=== PATIENT | female | born 1945 | race Caucasian/White ===

== ENCOUNTER 2023-09-20 12:10 | Emergency (ER) | payer MEDICARE, SELFPAY ==
[2023-09-20] VITALS (8 sets, daily range): BP systolic 119–177; BP diastolic 51–75
[2023-09-20 12:36] LABS: % Basophils 0.7 % (0-2); % Eosinophils 2.5 % (0-6); % Immature Granulocytes 1.3 % (0-0.5); % Lymphocytes 17.8 % (20.5-51.1); % Monocytes 9.6 % (1.7-9.3); % Neutrophils 68.1 % (42.2-75.2); Absolute Basophils 0.1 10^3/uL (0-0.2); Absolute Eosinophils 0.2 10^3/uL (0-0.7); Absolute Immature Granulocytes 0.1 10^3/uL (0-0.05); Absolute Lymphocytes 1.2 10^3/uL (1.2-3.4); Absolute Monocytes 0.7 10^3/uL (0.1-0.6); Absolute Neutrophils 4.7 10^3/uL (1.4-6.5); Hematocrit 37.1 % (37.0-47.0); Hemoglobin 12.1 g/dL (12.0-16.0); Mean Corp Hgb Conc. 32.6 g/dL (33.0-37.0); Mean Corpuscular Hgb 31.4 pg (27.0-31.0); Mean Corpuscular Volume 96.4 fL (81.0-99.0); Mean Platelet Volume 12.5 fL (7.4-10.4); Nucleated Red Blood Cells % 0 %; Platelet Count 152 10^3/uL (130-400); Red Blood Cell Count 3.85 10^6/uL (4.20-5.40); White Blood Cell Count 6.8 10^3/uL (4.8-10.8)
[2023-09-20 12:51] LABS: AST (SGOT) 24 U/L (14-36); Albumin 4.3 g/dl (3.5-5.0); Blood Urea Nitrogen 19 mg/dl (7-17); Calcium 10.5 mg/dl (8.4-10.2); Carbon Dioxide 32 mmol/L (22-30); Glucose 77 mg/dl (70-99); Potassium 4.6 mmol/L (3.5-5.1); Total Bilirubin 0.5 mg/dl (0.2-1.3); Total Protein 6.7 g/dl (6.3-8.2); eGFR > 60.00
[2023-09-20 12:53] LABS: ALT (SGPT) 14 U/L (0-35); Alkaline Phosphatase 71 U/L (38-126); Chloride 103 mmol/L (98-107); Sodium 139 mmol/L (135-145)
[2023-09-20 13:00] LABS: Troponin I < 0.012 ng/ml
--- NOTE | 2023-09-20 15:15 | CON.CAR ---
Addendum entered and electronically signed by Parveen Quiles MD 09/20/23 17:05:
I saw and examined the patient.
The [employer] And Breakfast Cook's note was reviewed and I agree with the note.
Comment: Briefly, 77-year-old woman past medical history of paroxysmal atrial fibrillation, hypertension, hyperlipidemia and DM2 who presents for evaluation of chest discomfort
Tells me that chest pain has been waxing and waning for approximately a week now and does not seem to be exertional in nature
Twelve-lead ECG here is does not show any ischemic changes
Troponin undetectable x 2
She had some relief of her chest discomfort with GI cocktail here
Given history of GERD and achalasia I suspect that her symptoms may be GI in nature
We will arrange for outpatient ischemic evaluation with nuclear stress test as well as office follow-up
Stable for discharge from my perspective
Original Note:
Consultation
Consultation Request
Date/Time Consultation Requested: 09/20/2023
Date/Time Consultation Performed: 09/20/2023
Requesting Provider: Dr. Magdaleno
Performing Provider: Dr. Quiles
Reason for Consultation: Chest Pain
Medical History
-
History of Present Illness:
HPI: Saundra is a 77-year-old female with past medical history of paroxysmal atrial fibrillation status post watchman, hypertension, hyperlipidemia, diabetes mellitus type 2, polymyalgia rheumatica, hypothyroidism, and orthostasis. She presents to
ER for evaluation of chest pain. She reports she has had intermittent chest pain for the past week. She feels her chest pain intermittently throughout the day, mostly with rest. She states her discomfort feels like a sharp/squeezing sensation
across her anterior chest. She notes associated lightheadedness, nausea, and chills. Her symptoms typically worsen towards the evening. She takes Tums, but has continued to have symptoms every day this week. She is active regularly, walking
without any exertional symptoms. In ER, workup has been unremarkable. Initial troponin negative. EKG sinus rhythm with PACs. No acute ischemic changes noted. She was given a GI cocktail to see if this helped her symptoms. She reports she
currently feels well and has no significant discomfort.
PMH:
Paroxysmal atrial fibrillation
s/p watchman implantation
Hypertension
DM 2
Polymyalgia rheumatica
Hyperlipidemia
Anxiety
Hypothyroidism
Orthostasis
PACs
Past Medical History
Past Medical History: Other (In HPI)
Past Surgical History: Other (Bilateral KLAUS, hysterectomy, cholecystectomy, bilateral carpal tunnel surgery)
Social History
Tobacco: Non-Smoker
Alcohol: None
Drug: None
Personal:
Living: With Family
Employment: Retired
Family History
Family History: CAD
Allergies / Home Medications
Allergy/AdvReac Type Severity Reaction Status Date / Time
iodine Allergy Unknown Verified 09/20/23 12:18
lisinopril Allergy Unknown Verified 09/20/23 12:18
sulfamethoxazole Allergy Unknown Verified 09/20/23 12:18
[From Bactrim]
trimethoprim [From Bactrim] Allergy Unknown Verified 09/20/23 12:18
Review of Systems
-
History Source: Patient
All other systems: Negative unless noted
Physical Exam
Vital Signs
Temp Pulse Resp BP Pulse Ox
98.2 F 55 15 139/64 94
09/20/23 12:16 09/20/23 15:00 09/20/23 15:00 09/20/23 15:00 09/20/23 14:45
Lab Results
09/20/23 12:25
09/20/23 12:25
Troponin I < 0.012 ng/ml 09/20/23 12:25
Physical Exam
General: Well Developed, Well Nourished and No Apparent Distress
HEENT: Normocephalic, Anicteric and Moist Mucous Membranes
Respiratory: Clear and Non Labored Respirations
Cardiac: S1/S2 and Regular Rhythm
Musculoskeletal: No Clubbing, No Cyanosis and Edema
Skin: Warm and Dry
Neuro: AO x 3 and Nonfocal/Grossly Intact
Psych: Calm
Impression / Plan
-
PCP: Dr. Noriega
Cardiology: Dr. Finesse Amos
Impression:
Presented with chest pain
Paroxysmal atrial fibrillation
s/p watchman implantation
Hypertension
DM 2
Polymyalgia rheumatica
Hyperlipidemia
Anxiety
Hypothyroidism
Orthostasis
PACs
Plan:
-Presented with 1 week of intermittent chest pain, typically worsened by the end of the day. Pain is not exertional in nature and typically occurs while at rest.
-She is active, walking regularly without any exertional chest pain.
-Initial troponin negative. Await repeat troponin.
-EKG sinus rhythm with PACs. No acute ischemic changes noted.
-Given GI cocktail in ER to see if this helps her symptoms.
-If second troponin remains negative, will arrange for outpatient stress testing.
-Patient reports history of cardiac catheterization 'many years ago.' Did not need any stenting at the time.
-Continue aspirin 81 mg daily.
-Continue Crestor 10 mg daily.
-Denies any shortness of breath. Does have some edema, but overall appears euvolemic. Continue Lasix 40 mg as needed edema. Chest xray without any acute abnormality.
-Blood pressure stable. Continue on Inderal.
-Will arrange cardiology follow-up appointment after stress testing. If second troponin trending up, would admit for observation and continue to trend troponins.
HPI: Saundra is a 77-year-old female with past medical history of paroxysmal atrial fibrillation status post watchman, hypertension, hyperlipidemia, diabetes mellitus type 2, polymyalgia rheumatica, hypothyroidism, and orthostasis. She presents to
ER for evaluation of chest pain. She reports she has had intermittent chest pain for the past week. She feels her chest pain intermittently throughout the day, mostly with rest. She states her discomfort feels like a sharp/squeezing sensation
across her anterior chest. She notes associated lightheadedness, nausea, and chills. Her symptoms typically worsen towards the evening. She takes Tums, but has continued to have symptoms every day this week. She is active regularly, walking
without any exertional symptoms. In ER, workup has been unremarkable. Initial troponin negative. EKG sinus rhythm with PACs. No acute ischemic changes noted. She was given a GI cocktail to see if this helped her symptoms. She reports she
currently feels well and has no significant discomfort.
Data Reviewed
-
EKG: Tracing Personally Visualized and interpreted
Radiology: Report Reviewed by me
Labs: Labs Reviewed by me
Old Records: Reviewed
[2023-09-20] MEDS: MAALOX 30 ML PO (15:23)
[2023-09-20] MEDS: PROTONIX IV 40 MG IV (15:23)
--- NOTE | 2023-09-20 15:35 | ED.GENMED ---
History of Present Illness
<Rajan Magdaleno DO - Last Filed: 09/20/23 15:51>
General
Chief Complaint: Chest Pain
Source: patient and family
Exam Limitations: none
Time Seen by Provider: 09/20/23 13:40
Nursing documentation reviewed up to this point in time: agreed with
History of Present Illness
History of Present Illness:
77-year-old female history of A-fib o post watchman at [facility], status post cardiac cath few blockages that could not be stented, reflux, presents with chest pain onset a week or so ago somewhat worse with exertion describes a pressure also
sharp in her chest no nausea no fever spoke with her physicians recommend she start her an acids, which she did without any relief recently did transfer care to Dr. Amos's practice, no fevers no hemoptysis does have chronic leg edema
Past History
<Rajan Magdaleno DO - Last Filed: 09/20/23 15:51>
Past History
ED Past Medical History: Arrthythmia, CAD and HTN
ED Past Surgical History: Cardiac (watchman); Negative Appendectomy
Social History
Tobacco: Non-smoker
Alcohol: None
Drug: None
Personal:
Living: with family
Employment: Retired
Review of Systems
<Rajan Magdaleno DO - Last Filed: 09/20/23 15:51>
Review of Systems
All Other Systems: Not applicable
Constitutional: Denies fever or fatigue
Respiratory: Reports trouble breathing
Cardiac: Reports chest pain
: Reports no symptoms
Musculoskeletal: Reports no symptoms
Skin: Reports no symptoms
Neurological: Reports no symptoms
Endocrine: Reports no symptoms
Phy Exam
<Rajan Magdaleno DO - Last Filed: 09/20/23 15:51>
Physical Exam
Physical Exam:
Physical Exam
General: Nontoxic 77 female
Neck: No jaundice
Heart: Regular
Lungs: no acute respiratory distress.
Abdomen: Nontender
Neuro: alert and oriented. no focal neurological deficits
Skin: no rash
Psychiatric: well kept. interactive and cooperative
Extremities: no edema.
Scores
<Yusef Saucedo MD - Last Filed: 09/20/23 20:45>
Heart Score for Chest Pain Patients
STEMI patient?: No
History: Slightly or Non-Suspicious
ECG: Nonspecific Repolarization
Age: >/= 65 years
Risk Factors: >/= 3 Risk Factors or History of CAD
Troponin: </= Normal Limit
Heart Score for Chest Pain Patients: 5
Heart Score Risk: 20.3% MACE over next 6 weeks
Course
<Rajan Magdaleno DO - Last Filed: 09/20/23 15:51>
Orders/Labs/Results
Orders:
Orders
09/20/23 12:14
Electrocardiogram (*1) Urgent
Reason for Study: Chest Pain
Cardiac Monitoring- Treatment ONCE
EKG- Treatment ONCE
IV Insert/Care/Rem.- Treatment PRN
O2 Therapy [RESP] Urgent
Titrate/Wean O2 to maintain O2 sat greater than (%): 90
Special Instructions: Maintain sats >/=90%
Pulse Ox/spot Check [RESP] Urgent
Quantity: 1
Special Instructions: ON ROOM AIR
09/20/23 12:25
Complete Blood Count/With Diff Urgent
Comprehensive Metabolic Panel Urgent
Troponin I Urgent
09/20/23 14:56
Mag Hydrox/Al Hydrox/Simeth [Maalox] 30 ml PO NOW STA
Pantoprazole [Protonix IV] 40 mg IV NOW STA
09/20/23 14:57
CR Chest Portable - 1 View Urgent
Comment:
Reason For Exam: cp
Reason Study Needs to be Portable: Patient Unstable
09/20/23 15:52
Troponin I Urgent
Abnormal Lab Results
09/20/23
12:25
RBC 3.85 L 10^6/uL
(4.20-5.40)
MCH 31.4 H pg
(27.0-31.0)
MCHC 32.6 L g/dL
(33.0-37.0)
MPV 12.5 H fL
(7.4-10.4)
Abs Immat Gran (auto) 0.1 H 10^3/uL
(0-0.05)
Absolute Monos (auto) 0.7 H 10^3/uL
(0.1-0.6)
Immature Gran % 1.3 H %
(0-0.5)
Lymphocytes % 17.8 L %
(20.5-51.1)
Monocytes % 9.6 H %
(1.7-9.3)
Carbon Dioxide 32 H mmol/L
(22-30)
BUN 19 H mg/dl
(7-17)
Calcium 10.5 H mg/dl
(8.4-10.2)
09/20/23 12:25
09/20/23 12:25
Vital Signs
Initial and Last Documented VS:
Initial Vital Signs
Pulse Resp Pulse Ox
57 19 98
09/20/23 12:15 09/20/23 12:15 09/20/23 12:15
Last Documented Vital Signs
Temp Pulse Resp BP Pulse Ox
98.1 F 55 18 119/58 95
09/20/23 17:33 09/20/23 17:33 09/20/23 17:33 09/20/23 17:33 09/20/23 17:33
<Yusef Saucedo MD - Last Filed: 09/20/23 20:45>
Orders/Labs/Results
Orders:
Orders
09/20/23 12:14
Electrocardiogram (*1) Urgent
Reason for Study: Chest Pain
Cardiac Monitoring- Treatment ONCE
EKG- Treatment ONCE
IV Insert/Care/Rem.- Treatment PRN
O2 Therapy [RESP] Urgent
Titrate/Wean O2 to maintain O2 sat greater than (%): 90
Special Instructions: Maintain sats >/=90%
Pulse Ox/spot Check [RESP] Urgent
Quantity: 1
Special Instructions: ON ROOM AIR
09/20/23 12:25
Complete Blood Count/With Diff Urgent
Comprehensive Metabolic Panel Urgent
Troponin I Urgent
09/20/23 14:56
Mag Hydrox/Al Hydrox/Simeth [Maalox] 30 ml PO NOW STA
Pantoprazole [Protonix IV] 40 mg IV NOW STA
09/20/23 14:57
CR Chest Portable - 1 View Urgent
Comment:
Reason For Exam: cp
Reason Study Needs to be Portable: Patient Unstable
09/20/23 15:52
Troponin I Urgent
Abnormal Lab Results
09/20/23
12:25
RBC 3.85 L 10^6/uL
(4.20-5.40)
MCH 31.4 H pg
(27.0-31.0)
MCHC 32.6 L g/dL
(33.0-37.0)
MPV 12.5 H fL
(7.4-10.4)
Abs Immat Gran (auto) 0.1 H 10^3/uL
(0-0.05)
Absolute Monos (auto) 0.7 H 10^3/uL
(0.1-0.6)
Immature Gran % 1.3 H %
(0-0.5)
Lymphocytes % 17.8 L %
(20.5-51.1)
Monocytes % 9.6 H %
(1.7-9.3)
Carbon Dioxide 32 H mmol/L
(22-30)
BUN 19 H mg/dl
(7-17)
Calcium 10.5 H mg/dl
(8.4-10.2)
09/20/23 12:25
09/20/23 12:25
Vital Signs
Initial and Last Documented VS:
Initial Vital Signs
Pulse Resp Pulse Ox
57 19 98
09/20/23 12:15 09/20/23 12:15 09/20/23 12:15
Last Documented Vital Signs
Temp Pulse Resp BP Pulse Ox
98.1 F 55 18 119/58 95
09/20/23 17:33 09/20/23 17:33 09/20/23 17:33 09/20/23 17:33 09/20/23 17:33
<Rajan Magdaleno, DO - Last Filed: 09/20/23 15:51>
MDM/Problems Addressed
Differential Diagnosis Includes:
Reflux noncardiac chest pain ACS stable angina
MDM/Problems Addressed:
Chest pain
Chronic conditions affecting care:
Feared
Chronic conditions affecting care: DM, CAD and Arrhythmia
Acute Exacerbation and/or Progression of Chronic Illness:
GERD
Acute Exacerbation and/or Progression of Chronic Illness: DM, HTN, CAD and Arrhythmia
<Rajan Magdaleno, DO - Last Filed: 09/20/23 15:51>
*Radiology
Radiology exam reviewed: preliminary read by ED provider
*Pulse Oximetry
Patient hypoxic: no
*EKG
Interpreted by ED Provider?: Yes
Interpretation: normal
Comparison EKG: no comparison EKG present
Heart Rate: 70
Rhythm: sinus
Ischemia: no ischemia
*Seo Coordinator Interpretation
Rate: normal
Interpretation: normal
Heart Rate: 70
Rhythm: sinus
*Critical Care Note
Total Time (30-74mins, 75-104mins- exclusive of procedures): Not Applicable
<Rajan Magdaleno DO - Last Filed: 09/20/23 15:51>
Update Note
Update Note:
Symptoms are both typical and atypical, will try some Maalox, repeat her troponin after cardiology evaluation patient states she did have CAD but was not stented
<Yusef Saucedo MD - Last Filed: 09/20/23 20:45>
Update Note
Update Note:
Symptoms are both typical and atypical, will try some Maalox, repeat her troponin after cardiology evaluation patient states she did have CAD but was not stented
Pt evaluated in ED by cardiology - recommends discharge home for oupatient f/u.
ED Attending Note
<Rajan Magdaleno, - Last Filed: 09/20/23 15:51>
-
Portions of this chart may have been created with voice recognition software.� Occasional wrong word or��sound alike� substitutions may have occurred due to the inherent limitations of voice recognition software.
Discharge Plan
Departure
Patient Disposition: Home (Routine Discharge)
Date of Disposition: 09/20/23
Time of Disposition: 16:12
Patient with high blood pressure during this ER visit?: No
Condition: Good
Discharge Problem:
Chest pain
Instructions: Chest Pain DCA Follow Up
Referrals:
Gricelda Noriega MD [Family Provider] -
Tanna Leong PA-C [Specified Professional Personl] - 10/16/23 8:20 am (You have a cardiology follow-up appointment at the [place] office with Dr. Kilpatrick's physician litigation legal assistant, Tanna. Please call with questions)
Interventions
Interventions:
*Risk Screen - Suicide Last Done: 09/20/23 12:15
*General Assessment Last Done: 09/20/23 12:25
*Neglect/Abuse Screening Last Done: 09/20/23 12:25
ED- Fall Risk Assessment Last Done: 09/20/23 12:25
*ED COVID-19 Vaccine History Last Done: 09/20/23 12:25
*Nursing Disposition Last Done: 09/20/23 17:33
ED- Cardiac Assessment Last Done: 09/20/23 12:30
Discharge Date and Time
Discharge Date/Time: 09/20/23 17:34
Print Language: AZERI
[2023-09-20 16:30] LABS: Troponin I < 0.012 ng/ml
== END 2023-09-20 17:34 | disposition home or self-care (01) ==
LOC: EMR 12:10
PROVIDERS: EMERGENCY PHYSICIAN Emergency Medicine; FAMILY PHYSICIAN Internal Medicine Geriatric Medicine
DX: R07.89 Other chest pain (principal); I48.0 Paroxysmal atrial fibrillation; I10 Essential (primary) hypertension; E78.00 Pure hypercholesterolemia, unspecified; E11.9 Type 2 diabetes mellitus without complications; E03.9 Hypothyroidism, unspecified; F41.9 Anxiety disorder, unspecified; M35.3 Polymyalgia rheumatica; Z79.899 Other long term (current) drug therapy; Z82.49 Family history of ischemic heart disease and other diseases of the circulatory system; Z90.49 Acquired absence of other specified parts of digestive tract; Z90.710 Acquired absence of both cervix and uterus
CPT/HCPCS: 99283; 96374; 71045; 80053; 84484; 85025; 93005

== ENCOUNTER → 2023-10-03 07:05 | Outpatient (REF) | payer OTHER, SELFPAY ==
[2023-10-03] MEDS: FLUSH (NSS) 1 FLUSH IV (08:44)
[2023-10-03] MEDS: LEXISCAN 0.4 MG IV (08:44)
== END ==
LOC: RCS 07:05
PROVIDERS: ATTENDING PHYSICIAN Internal Medicine Cardiovascular Disease; FAMILY PHYSICIAN Internal Medicine Geriatric Medicine
DX: R07.9 Chest pain, unspecified (principal); E11.9 Type 2 diabetes mellitus without complications
CPT/HCPCS: 78452; 93017; A9500; J2785

== ENCOUNTER 2023-10-25 07:44 | Emergency (ER) | payer OTHER, SELFPAY ==
[2023-10-25] VITALS (21 sets, daily range): BP systolic 99–149; BP diastolic 40–93; BMI 21.9
--- NOTE | 2023-10-25 08:15 | ED.GENMED ---
History of Present Illness
General
Chief Complaint: Heart Rate Problem
Source: patient and records
Exam Limitations: none
Time Seen by Provider: 10/25/23 08:04
Nursing documentation reviewed up to this point in time: agreed with
History of Present Illness
History of Present Illness:
77-year-old female with a past medical history of hypertension, hyperlipidemia, diabetes, chronic kidney disease, GERD, atrial fibrillation status post Watchman procedure no longer on anticoagulation who presents to the emergency department for
evaluation of lightheadedness and palpitations. Patient reports that she woke up this morning and went to the bathroom and while she was in the bathroom she began to feel lightheaded and racing heart. She says the symptoms persisted despite
sitting down and taking some deep breaths and so she asked to call for staff at [facility] where she lives and EMS was called to bring patient to the emergency room. She continues to report some mild palpitations, says that she does not
have lightheadedness while sitting but acknowledges most of her symptoms this morning were while she was more active. She says she did not and does not have any chest pain, denies shortness of breath. She says she was in her usual state of health
last night when she went to bed around 11 PM�has not had any recent fevers, chills, cough URI symptoms, GI symptoms. She normally sees Dr. Finesse Amos for cardiology; she is not on atrial fibrillation due to GI bleeding but has had Watchman
procedure. She was seen in this ER in September for chest pain, subsequently had nuclear stress test 10/03/2023 that was reassuring and she says that she was told her symptoms were due to likely GERD.
Past History
Past History
ED Past Medical History: Arrthythmia, CAD and HTN
ED Past Surgical History: Cardiac (watchman); Negative Appendectomy
Social History
Tobacco: Non-smoker
Alcohol: None
Drug: None
Personal:
Living: with family
Employment: Retired
Review of Systems
Review of Systems
All Other Systems: ROS reviewed and negative except as documented in HPI and ROS
Constitutional: Denies fever or chills
EENT: Denies sore throat or runny nose
Respiratory: Denies cough or trouble breathing
Cardiac: Reports palpitations; Denies chest pain or diaphoresis
ABD/GI: Denies abdominal pain, nausea, vomiting or diarrhea
: Denies flank pain
Musculoskeletal: Denies edema, neck pain or back pain
Neurological: Reports dizzy; Denies headache
Phy Exam
Physical Exam
Physical Exam:
General: Awake, alert, oriented x3; no acute distress
Head: Normocephalic, atraumatic
Eyes: Conjunctiva normal, pupils equal round and reactive to light bilaterally
Throat: Airway intact, handling secretions
Neck: Trachea midline, supple without meningismus
Lungs: Clear to auscultation bilaterally, no wheezing, rales, rhonchi
Heart: Tachycardia with irregularly irregular rhythm, no murmurs, gallops, or rubs
Abd: Soft, non distended, nontender
Neuro: No gross deficits
Skin: no rash
Extremities: No edema in extremities, equal pulses in all extremities
Scores
Heart Failure Risk
Heart Failure Risk Score: Not Applicable
Heart Score for Chest Pain Patients
STEMI patient?: Not applicable
Withdrawal Assessment of Alcohol
Withdrawal Assessment Completed?: Not applicable
Course
Orders/Labs/Results
Orders:
Orders
10/25/23 07:50
Electrocardiogram (*1) Urgent
Reason for Study: Palpitations
EKG- Treatment ONCE
10/25/23 07:57
BNP [NT-proBNP] Urgent
Complete Blood Count/With Diff Urgent
Comprehensive Metabolic Panel Urgent
Troponin I Urgent
10/25/23 08:52
Propofol [Diprivan] 20 ml .ROUTE .STK-MED
10/25/23 09:24
EKG [Electrocardiogram (*1)] Urgent
Reason for Study: Palpitations
EKG- Treatment ONCE
Abnormal Lab Results
10/25/23
07:57
RBC 3.77 L 10^6/uL
(4.20-5.40)
Hgb 11.6 L g/dL
(12.0-16.0)
Hct 35.9 L %
(37.0-47.0)
MCHC 32.3 L g/dL
(33.0-37.0)
Plt Count 125 L 10^3/uL
(130-400)
MPV 12.9 H fL
(7.4-10.4)
Abs Immat Gran (auto) 0.1 H 10^3/uL
(0-0.05)
Immature Gran % 0.8 H %
(0-0.5)
Lymphocytes % 15.7 L %
(20.5-51.1)
BUN 18 H mg/dl
(7-17)
Glucose 122 H mg/dl
(70-99)
Total Protein 5.9 L g/dl
(6.3-8.2)
10/25/23 07:57
10/25/23 07:57
Vital Signs
Pulse: 122
Initial and Last Documented VS:
Initial Vital Signs
Pulse Resp
91 13
10/25/23 07:53 10/25/23 07:53
Last Documented Vital Signs
Temp Pulse Resp BP Pulse Ox
36.9 C 51 28 111/90 99
10/25/23 10:00 10/25/23 10:20 10/25/23 10:20 10/25/23 10:20 10/25/23 10:15
Procedures
Cardioversion
Indication:: Afib
Performed by:: Basil Villeda MD
Synchronized?: Yes
Energy Used: 200 joules (4 attempts: 200J x1, 300J x1, 360J x2)
Number of attempts: 4
Successful?: Yes
ASA Risk Score: Class II
Any reaction or bad outcome to prior sedation/anesthesia?: No history of a reaction
Sedation level to be attained: moderate
Chart and allergies reviewed: Yes
Patient reassessed prior to sedation: Yes
Time out completed at (validating right patient & procedure): 09:15
History of difficult intubation: No
Airway free of obstruction: Yes
Patient has a gag reflex: Yes
Patient is able to open mouth: Yes
Patient has no dentures: Yes
Patient has no loose teeth: Yes
Medication administered by Provider during Moderate Sedation: IV Propofol (mg)
Total dose administered: 60
Time drug administered: 09:15
Start Time: 09:15
Stop Time: 09:30
MDM/Problems Addressed
Differential Diagnosis Includes:
Symptomatic atrial fibrillation, symptomatic anemia, dehydration, electrolyte derangement
MDM/Problems Addressed:
77-year-old female presents to the emergency room for evaluation of palpitations and lightheadedness�found to be in atrial fibrillation with RVR on EKG done in triage. Labile heart rate between 90s and 130s here, normotensive, rest of vitals
normal. Physical exam as above. She had lab work sent in triage�will follow-up. Case discussed with cardiology�despite lack of anticoagulation given the fact that she has had Watchman procedure still a reasonable candidate for ED cardioversion.
Discussed with patient she is agreeable. Plan for cardioversion pending initial labs.
Initial labs reviewed: CBC unremarkable, CMP no clinically significant abnormalities. Patient cardioverted as documented in procedure note�required 4 times, initial 2 attempts no conversion to sinus rhythm, on third attempt converted to sinus
rhythm but quickly reverted to atrial fibrillation, fourth attempt sustained sinus rhythm with PACs. Patient tolerated procedure well. Continue to monitor on telemetry status post sedation and cardioversion.
Patient awake and alert, asymptomatic since cardioversion. Ambulatory with no dizziness. Monitored for 1 hour after cardioversion and maintained sinus rhythm. Stable for discharge. She will follow-up with cardiology. Spoke about return
precautions all questions answered.
Chronic conditions affecting care:
Paroxysmal atrial fibrillation
Acute Exacerbation and/or Progression of Chronic Illness:
Acute exacerbation of chronic A-fib managed with cardioversion
Acute Exacerbation and/or Progression of Chronic Illness: Arrhythmia
*Pulse Oximetry
Patient hypoxic: no
*EKG
Interpreted by ED Provider?: Yes
Heart Rate: 90
Rate: normal
Rhythm: a-fib
[place]: normal axis
Interval: normal interval
QRS Pattern: normal QRS
Ischemia: non-specific ST changes
*Critical Care Note
Total Time (30-74mins, 75-104mins- exclusive of procedures): 30
comment:
Critical care statement: A total of 30 minutes of critical care time was provided for this patient. This includes management of unstable vital signs, evaluation of the patient at bedside, frequent reassessment, discussion with
consultants/hospitalist, and review of pertinent medical records. This time was separate from time utilized to perform any aforementioned documented procedures
Data Reviewed
Source: patient and records
Patient Management
Discussion with other providers: Security Flex Officer (Discussed with cardiology)
ED Attending Note
-
Portions of this chart may have been created with voice recognition software.� Occasional wrong word or��sound alike� substitutions may have occurred due to the inherent limitations of voice recognition software.
Discharge Plan
Departure
Patient with high blood pressure during this ER visit?: No
Discharge Problem:
Atrial fibrillation status post cardioversion
Instructions: Atrial Fibrillation (DC), MODERATE SEDATION ADULT
Prescriptions:
No Action
furosemide 40 mg Tablet
40 mg PO PRN PRN (Reason: edema)
metformin 500 mg Tablet
500 mg PO TID
acetaminophen 500 mg Tablet
1,000 mg PO BID PRN (Reason: pain)
levothyroxine [Synthroid] 75 mcg Tablet
75 mcg PO DAILY
famotidine [Pepcid] 20 mg Tablet
20 mg PO DAILY
lansoprazole 30 mg Capsule,Delayed Release(Dr/Ec)
30 mg PO BID
aspirin 81 mg Tablet,Chewable
81 mg PO DAILY
propranolol 120 mg Capsule,Extended Release 24hr
120 mg PO DAILY
rosuvastatin [Crestor] 10 mg Tablet
10 mg PO DAILY
Referrals:
Gricelda Noriega MD [Family Provider] - Call in 1-3 days for appt
Jaden Amos MD [Active] - Call in 1-3 days for appt
Activity Restrictions/Additional Instructions:
Thank you for visiting the Emergency Department at [facility].
1. Please schedule a follow up appointment as directed. Call first thing tomorrow morning to make an appointment.
2. If indicated, please take your medications as instructed and indicated on discharge paperwork.
3. If any of your symptoms do not improve, or persist, or become more severe within 6-12 hours, please return to the emergency department for further care.
4. Please return to the emergency department if you develop a headache, neck pain/stiffness, fever greater than 100.4F, chest pain, shortness of breath, persistent nausea, vomiting, slurred speech, difficulty walking, numbness/tingling, weakness,
signs of infection or any other symptoms that are worrisome to you.
Please call [phone] if you have any questions.
Interventions
Interventions:
*Risk Screen - Suicide Last Done: 10/25/23 07:53
*General Assessment Last Done: 10/25/23 07:54
*Neglect/Abuse Screening Last Done: 10/25/23 07:53
ED- Fall Risk Assessment Last Done: 10/25/23 07:51
*ED COVID-19 Vaccine History Last Done: 10/25/23 07:53
ED- Cardiac Assessment Last Done: 10/25/23 07:54
ED- Pulmonary Assessment Last Done: 10/25/23 07:54
Discharge Date and Time
Print Language: LUXEMBOURGER
[2023-10-25 08:18] LABS: % Basophils 0.8 % (0-2); % Eosinophils 2.4 % (0-6); % Immature Granulocytes 0.8 % (0-0.5); % Lymphocytes 15.7 % (20.5-51.1); % Monocytes 6.7 % (1.7-9.3); % Neutrophils 73.6 % (42.2-75.2); Absolute Basophils 0.1 10^3/uL (0-0.2); Absolute Eosinophils 0.2 10^3/uL (0-0.7); Absolute Immature Granulocytes 0.1 10^3/uL (0-0.05); Absolute Lymphocytes 1.2 10^3/uL (1.2-3.4); Absolute Monocytes 0.5 10^3/uL (0.1-0.6); Absolute Neutrophils 5.6 10^3/uL (1.4-6.5); Hematocrit 35.9 % (37.0-47.0); Hemoglobin 11.6 g/dL (12.0-16.0); Mean Corp Hgb Conc. 32.3 g/dL (33.0-37.0); Mean Corpuscular Hgb 30.8 pg (27.0-31.0); Mean Corpuscular Volume 95.2 fL (81.0-99.0); Mean Platelet Volume 12.9 fL (7.4-10.4); Nucleated Red Blood Cells % 0 %; Platelet Count 125 10^3/uL (130-400); Red Blood Cell Count 3.77 10^6/uL (4.20-5.40); Red Cell Dist. Width 13.2 % (11.5-14.5); White Blood Cell Count 7.6 10^3/uL (4.8-10.8)
[2023-10-25 08:24] LABS: ALT (SGPT) < 10 U/L (0-35); AST (SGOT) 19 U/L (14-36); Albumin 3.7 g/dl (3.5-5.0); Alkaline Phosphatase 69 U/L (38-126); Blood Urea Nitrogen 18 mg/dl (7-17); Calcium 9.4 mg/dl (8.4-10.2); Carbon Dioxide 27 mmol/L (22-30); Chloride 107 mmol/L (98-107); Estimated Creatinine Clearance 54 ml/min; Glucose 122 mg/dl (70-99); Potassium 3.9 mmol/L (3.5-5.1); Sodium 143 mmol/L (135-145); Total Bilirubin 0.5 mg/dl (0.2-1.3); Total Protein 5.9 g/dl (6.3-8.2); eGFR > 60.00
[2023-10-25 08:35] LABS: NT-proBNP 2650 pg/ml; Troponin I < 0.012 ng/ml
== END 2023-10-25 10:55 | disposition home or self-care (01) ==
LOC: EMR 07:44
PROVIDERS: Emergency Medicine; EMERGENCY PHYSICIAN Emergency Medicine; FAMILY PHYSICIAN Internal Medicine Geriatric Medicine
DX: I48.91 Unspecified atrial fibrillation (principal); E11.22 Type 2 diabetes mellitus with diabetic chronic kidney disease; I12.9 Hypertensive chronic kidney disease with stage 1 through stage 4 chronic kidney disease, or unspecified chronic kidney disease; N18.9 Chronic kidney disease, unspecified; E78.00 Pure hypercholesterolemia, unspecified; K21.9 Gastro-esophageal reflux disease without esophagitis; I25.10 Atherosclerotic heart disease of native coronary artery without angina pectoris; Z90.49 Acquired absence of other specified parts of digestive tract
CPT/HCPCS: 99291; 92960; 80053; 83880; 84484; 85025; 93005

== ENCOUNTER → 2024-05-21 07:58 | Outpatient (REF) | payer OTHER, SELFPAY | LOC: HWRCS 07:58 | PROVIDERS: ATTENDING PHYSICIAN Internal Medicine Cardiovascular Disease; FAMILY PHYSICIAN Internal Medicine Geriatric Medicine | DX: I48.91 Unspecified atrial fibrillation (principal); R06.09 Other forms of dyspnea | CPT/HCPCS: 93306 ==

== ENCOUNTER 2024-06-08 09:16 | Emergency (ER) | payer OTHER, SELFPAY ==
[2024-06-08] VITALS (10 sets, daily range): BP systolic 93–172; BP diastolic 44–78; BMI 25.9
[2024-06-08 09:42] LABS: % Basophils 0.6 % (0-2); % Eosinophils 1.2 % (0-6); % Immature Granulocytes 0.4 % (0-0.5); % Monocytes 7.7 % (1.7-9.3); % Neutrophils 73.1 % (42.2-75.2); Absolute Basophils 0.1 10^3/uL (0-0.2); Absolute Eosinophils 0.1 10^3/uL (0-0.7); Absolute Lymphocytes 1.4 10^3/uL (1.2-3.4); Absolute Monocytes 0.7 10^3/uL (0.1-0.6); Absolute Neutrophils 6.2 10^3/uL (1.4-6.5); Hematocrit 41.6 % (37.0-47.0); Hemoglobin 13.7 g/dL (12.0-16.0); Mean Corp Hgb Conc. 32.9 g/dL (33.0-37.0); Mean Corpuscular Hgb 32.5 pg (27.0-31.0); Mean Corpuscular Volume 98.8 fL (81.0-99.0); Mean Platelet Volume 12.4 fL (7.4-10.4); Nucleated Red Blood Cells % 0 %; Platelet Count 162 10^3/uL (130-400); Red Blood Cell Count 4.21 10^6/uL (4.20-5.40); Red Cell Dist. Width 13.2 % (11.5-14.5); White Blood Cell Count 8.4 10^3/uL (4.8-10.8)
[2024-06-08 09:51] LABS: ALT (SGPT) 14 U/L (0-35); AST (SGOT) 17 U/L (14-36); Albumin 4.1 g/dl (3.5-5.0); Alkaline Phosphatase 46 U/L (38-126); Blood Urea Nitrogen 19 mg/dl (7-17); Calcium 10.2 mg/dl (8.4-10.2); Carbon Dioxide 29 mmol/L (22-30); Chloride 103 mmol/L (98-107); Glucose 125 mg/dl (70-99); Potassium 4.7 mmol/L (3.5-5.1); Sodium 138 mmol/L (135-145); Total Bilirubin 0.7 mg/dl (0.2-1.3); Total Protein 6.2 g/dl (6.3-8.2); eGFR > 60.00
[2024-06-08 10:03] LABS: Troponin I < 0.012 ng/ml
[2024-06-08 10:58] LABS: Glucose - Point of Care 91 mg/dl (70-99)
[2024-06-08 11:33] LABS: Troponin I < 0.012 ng/ml
--- NOTE | 2024-06-08 12:43 | ED.GENMED ---
History of Present Illness
General
Chief Complaint: Blood Pressure Problem
Source: patient and spouse
Time Seen by Provider: 06/08/24 10:03
History of Present Illness
History of Present Illness:
78-year-old female who was sent by cardiology from the [facility] after she presented to have a stress test and they noted her blood pressure was elevated. The patient's chest tightness around 7:45 AM. Patient states that typically her blood
pressure is controlled. She is having a stress test in preparation for another procedure. On my evaluation reports no other complaints.
Past History
Past History
ED Past Medical History: Arrthythmia, CAD and HTN
ED Past Surgical History: Cardiac (watchman); Negative Appendectomy
Social History
Tobacco: Non-smoker
Alcohol: None
Drug: None
Personal:
Living: with family
Employment: Retired
Phy Exam
Physical Exam
Physical Exam:
CONSTITUTIONAL Patient alert and oriented to person, place and time. Well-appearing. Vital signs reviewed.
HEAD atraumatic, normocephalic.
EYES eyelids normal to inspection, Extraocular muscles intact, Conjunctiva normal, Sclera normal.
NECK normal range of motion, Trachea midline, no jugular venous distention.
RESPIRATORY CHEST No respiratory distress noted, Chest expansion equal, Bilateral breath sounds clear.
CARDIOVASCULAR regular rate and rhythm, Heart sounds normal.
ABDOMEN abdomen nontender, Bowel sounds normal. No distention.
BACK normal inspection, no obvious deformities
UPPER EXTREMITY range of motion normal, Motor strength normal, no cyanosis, no edema.
LOWER EXTREMITY range of motion normal, Motor strength normal, no cyanosis, no edema.
NEURO Speech normal, No focal motor deficits, [place] coma scale 15, Memory normal, Cranial Nerves intact to screening exam.
SKIN skin warm, dry, and normal in color.
Course
Orders/Labs/Results
Orders:
Orders
06/08/24 09:17
Electrocardiogram (*1) Urgent
Reason for Study: Chest Pain
EKG- Treatment ONCE
06/08/24 09:29
Complete Blood Count/With Diff Urgent
Comprehensive Metabolic Panel Urgent
Troponin I Urgent
06/08/24 11:04
Troponin I Urgent
Abnormal Lab Results
06/08/24
09:29
MCH 32.5 H pg
(27.0-31.0)
MCHC 32.9 L g/dL
(33.0-37.0)
MPV 12.4 H fL
(7.4-10.4)
Absolute Monos (auto) 0.7 H 10^3/uL
(0.1-0.6)
Lymphocytes % 17.0 L %
(20.5-51.1)
BUN 19 H mg/dl
(7-17)
Glucose 125 H mg/dl
(70-99)
Total Protein 6.2 L g/dl
(6.3-8.2)
06/08/24 09:29
06/08/24 09:29
Vital Signs
Initial and Last Documented VS:
Initial Vital Signs
Temp Pulse Resp BP Pulse Ox
97.5 F 55 18 167/71 99
06/08/24 09:23 06/08/24 09:23 06/08/24 09:23 06/08/24 09:23 06/08/24 09:23
Last Documented Vital Signs
Temp Pulse Resp BP Pulse Ox
97.5 F 55 20 93/44 99
06/08/24 09:23 06/08/24 12:00 06/08/24 11:52 06/08/24 12:00 06/08/24 12:00
MDM/Problems Addressed
Differential Diagnosis Includes:
ACS, dissection, pheochromocytoma, renal artery stenosis
MDM/Problems Addressed:
Atypical chest pain, uncontrolled hypertension
*Pulse Oximetry
Patient hypoxic: no
*EKG
Interpreted by ED Provider?: Yes
Interpretation: abnormal
Rate: bradycardiac
Rhythm: sinus
[place]: normal axis
Interval: normal interval
Ischemia: no ischemia
*Critical Care Note
Total Time (30-74mins, 75-104mins- exclusive of procedures): Not Applicable
Data Reviewed
Source: patient and spouse (Spouse states that they send her for the possibility of considering also whether she should have a stress test done here.)
Prescriptions/Medications Considered But Not Given:
Consider antihypertensives but patient states her blood pressure is normally quite controlled
Patient Management
Discussion with other providers: Vp Organizational Development (Case discussed with Dr. Cosme. If negative troponin x 2 okay for discharge and outpatient follow-up)
Escalation/DeEscalation of care consider admission/obs:
Blood pressure improving without intervention. Will hold off on management for now and refer back to cardiology for follow-up as outpatient
ED Attending Note
-
Portions of this chart may have been created with voice recognition software.� Occasional wrong word or��sound alike� substitutions may have occurred due to the inherent limitations of voice recognition software.
Discharge Plan
Departure
Patient Disposition: Home (Routine Discharge)
Date of Disposition: 06/08/24
Time of Disposition: 12:43
Patient with high blood pressure during this ER visit?: No
Discharge Problem:
Atypical chest pain, Uncontrolled hypertension
Instructions: High Blood Pressure (DC), Chest Pain DCA Follow Up, BLOOD PRESSURE
Prescriptions:
No Action
furosemide 40 mg Tablet
40 mg PO PRN PRN (Reason: edema)
metformin 500 mg Tablet
500 mg PO TID
acetaminophen 500 mg Tablet
1,000 mg PO BID PRN (Reason: pain)
levothyroxine [Synthroid] 75 mcg Tablet
75 mcg PO DAILY
famotidine [Pepcid] 20 mg Tablet
20 mg PO DAILY
lansoprazole 30 mg Capsule,Delayed Release(/Ec)
30 mg PO BID
aspirin 81 mg Tablet,Chewable
81 mg PO DAILY
propranolol 120 mg Capsule,Extended Release 24hr
120 mg PO DAILY
rosuvastatin [Crestor] 10 mg Tablet
10 mg PO DAILY
Referrals:
Gricelda Noriega MD [Family Provider] -
Activity Restrictions/Additional Instructions:
Please avoid strenuous or exertional activity until cleared by cardiology. Please see cardiology in the next 48 hours for reevaluation. Return immediately for worsening pain, shortness breath, palpitations, sweating, nausea, weakness of any kind,
numbness, tingling or any other concerns.
Cardiology has been notified and a follow up appointment has been requested. Someone will call you on the next business day to schedule a follow up appointment.
Interventions
Interventions:
*Risk Screen - Suicide Last Done: 06/08/24 09:23
*General Assessment Last Done: 06/08/24 09:23
*Neglect/Abuse Screening Last Done: 06/08/24 09:23
*ED- Fall Risk Assessment Last Done: 06/08/24 11:17
*ED COVID-19 Vaccine History Last Done: 06/08/24 11:17
ED- Cardiac Assessment Last Done: 06/08/24 11:17
ED- Neurological Assessment Last Done: 06/08/24 10:12
ED- Pulmonary Assessment Last Done: 06/08/24 10:12
Discharge Date and Time
Print Language: WOLOF
== END 2024-06-08 12:55 | disposition home or self-care (01) ==
LOC: EMR 09:16
PROVIDERS: EMERGENCY PHYSICIAN Emergency Medicine; FAMILY PHYSICIAN Internal Medicine Geriatric Medicine
DX: R07.89 Other chest pain (principal); I10 Essential (primary) hypertension; Z88.1 Allergy status to other antibiotic agents; Z88.2 Allergy status to sulfonamides; Z88.8 Allergy status to other drugs, medicaments and biological substances
CPT/HCPCS: 99283; 80053; 82962; 84484; 85025; 93005

== ENCOUNTER → 2024-06-29 08:27 | Outpatient (REF) | payer OTHER, SELFPAY | LOC: HWRCS 08:27 | PROVIDERS: ATTENDING PHYSICIAN Internal Medicine Cardiovascular Disease; FAMILY PHYSICIAN Internal Medicine Geriatric Medicine | DX: I48.91 Unspecified atrial fibrillation (principal); R06.09 Other forms of dyspnea | CPT/HCPCS: 78452; 93017; A9500; J2785 ==

== ENCOUNTER 2024-07-01 06:05 | Day surgery (SDC) | payer OTHER, SELFPAY ==
[2024-06-18 08:32] LABS: % Basophils 0.6 % (0-2); % Eosinophils 1.5 % (0-6); % Immature Granulocytes 0.6 % (0-0.5); % Lymphocytes 22.9 % (20.5-51.1); % Monocytes 5.8 % (1.7-9.3); % Neutrophils 68.6 % (42.2-75.2); Absolute Eosinophils 0.1 10^3/uL (0-0.7); Absolute Lymphocytes 1.7 10^3/uL (1.2-3.4); Absolute Monocytes 0.4 10^3/uL (0.1-0.6); Hematocrit 40.5 % (37.0-47.0); Hemoglobin 13.1 g/dL (12.0-16.0); Mean Corp Hgb Conc. 32.3 g/dL (33.0-37.0); Mean Corpuscular Hgb 32.3 pg (27.0-31.0); Mean Platelet Volume 12.7 fL (7.4-10.4); Nucleated Red Blood Cells % 0 %; Platelet Count 161 10^3/uL (130-400); Red Blood Cell Count 4.05 10^6/uL (4.20-5.40); Red Cell Dist. Width 13.2 % (11.5-14.5); White Blood Cell Count 7.2 10^3/uL (4.8-10.8)
[2024-06-18 08:40] LABS: INR 1.11; PT 14.8 Sec (11.4-14.6)
[2024-06-18 08:43] LABS: ALT (SGPT) 14 U/L (0-35); AST (SGOT) 16 U/L (14-36); Alkaline Phosphatase 44 U/L (38-126); Blood Urea Nitrogen 20 mg/dl (7-17); Calcium 10.5 mg/dl (8.4-10.2); Carbon Dioxide 31 mmol/L (22-30); Chloride 100 mmol/L (98-107); Glucose 217 mg/dl (70-99); Magnesium 1.4 mg/dl (1.6-2.3); Potassium 4.1 mmol/L (3.5-5.1); Sodium 138 mmol/L (135-145); Total Bilirubin 0.5 mg/dl (0.2-1.3); eGFR > 60.00
[2024-06-18 10:20] VITALS: BMI 20.2
[2024-07-01] VITALS (12 sets, daily range): BP systolic 94–170; BP diastolic 52–100
[2024-07-01 07:04] LABS: Glucose - Point of Care 106 mg/dl (70-99)
--- NOTE | 2024-07-01 08:00 | ITS.CL.ABL ---
[employer] - Ablation
Ablation
Procedure Report:
ELECTROPHYSIOLOGIC STUDY AND POSSIBLE ABLATION
DATE: 07/01/24
Primary Care Provider: Dr Gricelda Noriega
INDICATION:
Symptomatic Atrial Fibrillation.
Paroxysmal
HISTORY: See H and P.
Symptomatic AF, poorly controlled with attempted medical therapy.
Flecainide was attempted but was poorly tolerated.
She has a history of paroxysmal atrial fibrillation and underwent watchman implantation in the past, GIBs, hypertension, diabetes mellitus, polymyalgia rheumatica, dyslipidemia and symptomatic paroxysmal nonsustained atrial tachycardia and PACs.�
Echocardiogram dated May 21, 2024 finds normal left ventricular size and function ejection fraction 55 to 60%, there is mild to moderate mitral regurgitation.
HAS-BLED:
Age
CHADSVASc: 5
HTN
Age
DM
F Gender
PRESENTING RHYTHM: Sinus rhythm
HISTORY: See H and P.
Symptomatic AF, poorly controlled with attempted medical therapy.
ANTICOAGULATION: Eliquis 5 mg twice daily which was initiated approximately 3 days prior to PVI (she has Watchman in place)
'TIME-OUT': called and confirmed.
SEDATION/ANESTHESIA: provided via the anesthesia department using general anesthesia.
PROCEDURE:
Ultrasound Guidance with real-time visualization of needle insertion and vessel patency performed by ny for femoral venous Vascular Access.
Under real-time US guidance, the needle was advanced with negative pressure into the vein. The needle was seen entering the vessel lumen with a good return of dark red flow, the syringe was removed, non-pulsatile, dark red blood low was noted and
the wire was passed without difficulty, then the needle was removed. US confirmed the wire was in the vein, not going into an artery,
Images were taken and saved for the patient's permanent record. Imaging findings typical femoral venous anatomy. Direct visualization of needle puncture into the femoral vein was observed and recorded.
A decapolar CS catheter was placed within the CS for mapping and pacing.
The intracardiac ultrasound catheter was positioned in the RA for continuous intracardiac ultrasound imaging.
Heparin bolus and infusion to target ACT at 300 -350 seconds was administered. Transseptal puncture was performed. This entailed advancing a sheath with dilator into the superior vena cava and withdrawing both (monitoring intracardiac ultrasound,
fluoroscopy and tip pressure) with the tip oriented toward the atrial septum. The fossa ovalis was engaged (indicated by sudden displacement of the sheath tip as well as tenting of the fossa seen on intracardiac ultrasound).
The [employer] transseptal system was used. Left atrial catheter position was confirmed by echocardiographic imaging and fluoroscopy followed by RF delivery using the hhgregg system resulting in successful LA access with pressure monitoring
demonstrating LA pressure waveforms (LA mean pressure [ ] mm Hg). The sheath was advanced over the dilator and positioned in the left atrium.
The [employer] Grid multipolar mapping catheter was initially positioned through the transseptal sheath for high density mapping.
Geometry and voltage mapping was performed using the Ling multipolar grid catheter. Skip Hopite-X was utilized for three-dimensional electroanatomical mapping.
A 3-D map was created using Ensite-X in Voxel mode. A 3-D reconstructed CT image was compared to the 3-D Navex map to assist in anatomic evaluation, mapping and ablation.
The [employer] PFA catheter and system was used for cardiac ablation. Catheter positioning was guided and confirmed using both I.C.E. and fluoroscopy.
Additional energy applications/additional ablation sets targeted extra PV contributors to atrial fibrillation.
Targets were identified with electroanatomical voltage mapping finding areas of low voltage and complex fractionated electrograms. These areas can be sites for the formation of rotors which can drive and maintain atrial fibrillation. These areas are
known to be significant contributors to initiation and perpetuation of atrial fibrillation.
Targets for additional PFA ablation included:
LA posterior wall
After ablation of the posterior wall, targets remained at the inferior/ floor of the LA
LA inferior floor ablation line was performed
At the completion of ablation at the targeted extra PV sites, post ablation mapping finds that the targeted complex fractionated electrograms and low voltage areas are eliminated rendering the sites no longer able to contribute to atrial
fibrillation. Post ablation high output pacing at the targeted sites demonstrate lack of capture / exit block.
Post ablation mapping additionally finds that all PVPs were eliminated at each vein demonstrating entrance block. Also pacing around the the circumference of the ostia was performed at 10 ma and 2.0 msec output to assess for exit block. This
demonstrated electrical isolation at each of the pulmonary vein ostia (LSPV, LIPV, RSPV, RIPV).
Programmed electrostimulation including burst atrial pacing as well as delivery of atrial decremental extrastimuli down to atrial ERP failed to induce any sustained arrhythmias.
I.C.E. :
Pre-Ablation Post-Ablation
LVEF: 55% 55%
WMA: None none
Pericardial effusion: None none
The previously placed Watchman left atrial appendage occlusion device was visualized with intracardiac echocardiogram and care was taken to avoid any wire manipulation near the the Watchman device. Intracardiac echocardiogram finds no change in the
echocardiographic appearance of the Watchman left atrial appendage occlusion device throughout the study and at the end of the study.
COMPLICATIONS:
None
SUMMARY:
- Mapping and ablation to isolate the PVs
- Additional AF ablation set after PVI X 2.
LA posterior wall
LA inferior floor
- 3-D Electroanatomical Mapping
- Intracardiac Ultrasound
- Ultrasound guidance for vascular access
Post ablation, I discussed today's findings and results with the patient's , Tim.
RECOMMENDATIONS:
- Observe in monitored bed.
- Maintain oral anticoagulation.
Maintain oral anticoagulation for 3 months post ablation then can discontinue in favor of aspirin 81 mg daily (previously placed Watchman left atrial appendage occlusion device)
- Office visit with me is scheduled November 10, 2024
Copy to: Dr Gricelda Noriega
[2024-07-01 08:47] LABS: ACT-LR - POC 397 Seconds (116-155)
[2024-07-01 10:58] LABS: ACT-LR - POC > 397 Seconds (116-155)
[2024-07-01 10:58] LABS: ACT-LR - POC > 397 Seconds (116-155)
--- NOTE | 2024-07-01 14:13 | W.PN.UPDATE ---
Update Note
Progress Note Update
Pt seen post PFA. Right groin site without ht/bleeding, OOB ambulating, urinating without difficulty. Post EKG SB 50-60s, no acute changes. Resume eliquis tonight, continue other meds as before. Followup with Dr. Amos as scheduled. Home today
if groin site/tele remain stable.
== END 2024-07-01 15:00 | disposition home or self-care (01) ==
LOC: CATH 06:05
PROVIDERS: ATTENDING PHYSICIAN Internal Medicine Cardiovascular Disease
DX: I48.0 Paroxysmal atrial fibrillation (principal); I47.19 Other supraventricular tachycardia; E78.5 Hyperlipidemia, unspecified; I34.0 Nonrheumatic mitral (valve) insufficiency; M35.3 Polymyalgia rheumatica; E11.22 Type 2 diabetes mellitus with diabetic chronic kidney disease; I12.9 Hypertensive chronic kidney disease with stage 1 through stage 4 chronic kidney disease, or unspecified chronic kidney disease; Z79.01 Long term (current) use of anticoagulants; I25.10 Atherosclerotic heart disease of native coronary artery without angina pectoris; R91.8 Other nonspecific abnormal finding of lung field; Z86.0100 Personal history of colon polyps, unspecified; K21.9 Gastro-esophageal reflux disease without esophagitis; I83.90 Asymptomatic varicose veins of unspecified lower extremity; E03.9 Hypothyroidism, unspecified; F41.9 Anxiety disorder, unspecified; E83.52 Hypercalcemia; E83.42 Hypomagnesemia; Z79.899 Other long term (current) drug therapy; Z79.890 Hormone replacement therapy; Z88.8 Allergy status to other drugs, medicaments and biological substances; Z90.49 Acquired absence of other specified parts of digestive tract; I49.1 Atrial premature depolarization; M19.90 Unspecified osteoarthritis, unspecified site; N18.30 Chronic kidney disease, stage 3 unspecified; Z79.84 Long term (current) use of oral hypoglycemic drugs; Z88.1 Allergy status to other antibiotic agents; Z90.710 Acquired absence of both cervix and uterus
CPT/HCPCS: C1732; C1894; C1730; C1892; 36415; 75572; 80053; 82962; 83735; 85025; 85347; 85610; 86850; 86900; 86901; 93005; 93656; 93657; C1733; C1766; Q9967

== ENCOUNTER → 2024-10-09 09:44 | Outpatient (REF) | payer OTHER, SELFPAY | LOC: HWRAD 09:44 | PROVIDERS: ATTENDING PHYSICIAN Internal Medicine Geriatric Medicine | DX: R91.8 Other nonspecific abnormal finding of lung field (principal) | CPT/HCPCS: 71250 ==

== ENCOUNTER 2024-12-07 17:53 | Emergency (ER) | payer OTHER, SELFPAY ==
[2024-12-07 17:57] VITALS: BP 173/67
[2024-12-07 18:01] VITALS: BMI 22.3
[2024-12-07 19:00] VITALS: BP 139/68
[2024-12-07] MEDS: NSS 500 IV (19:30)
[2024-12-07 19:38] LABS: Hematocrit 35.4 % (37.0-47.0); Hemoglobin 10.9 g/dL (12.0-16.0); Mean Corp Hgb Conc. 30.8 g/dL (33.0-37.0); Mean Corpuscular Volume 98.9 fL (81.0-99.0); Nucleated Red Blood Cells % 0 %; Platelet Count 127 10^3/uL (130-400); Red Cell Dist. Width 13.0 % (11.5-14.5)
[2024-12-07 19:48] LABS: D-Dimer 0.62 ug/mlFEU (0.00-0.50)
[2024-12-07 19:57] LABS: ALT (SGPT) < 10 U/L (0-35); AST (SGOT) 15 U/L (14-36); Albumin 3.9 g/dl (3.5-5.0); Alkaline Phosphatase 62 U/L (38-126); Blood Urea Nitrogen 20 mg/dl (7-17); Calcium 9.7 mg/dl (8.4-10.2); Carbon Dioxide 27 mmol/L (22-30); Chloride 106 mmol/L (98-107); Estimated Creatinine Clearance 53 ml/min; Glucose 143 mg/dl (70-99); Magnesium 1.6 mg/dl (1.6-2.3); Potassium 4.3 mmol/L (3.5-5.1); Sodium 136 mmol/L (135-145); Total Protein 6.2 g/dl (6.3-8.2); eGFR > 60.00
[2024-12-07 20:00] VITALS: BP 181/73
[2024-12-07 20:09] LABS: Troponin I 0.014 ng/ml
--- NOTE | 2024-12-07 21:30 | ED.GENMED ---
History of Present Illness
General
Chief Complaint: Heart Rate Problem
Time Seen by Provider: 12/07/24 18:40
History of Present Illness
History of Present Illness:
see MDM
Past History
Past History
ED Past Medical History: Arrthythmia, CAD and HTN
ED Past Surgical History: Cardiac (watchman); Negative Appendectomy
Social History
Tobacco: Non-smoker
Alcohol: None
Drug: None
Personal:
Living: with family
Employment: Retired
Phy Exam
Physical Exam
Physical Exam:
see MDM
Course
Orders/Labs/Results
Orders:
Orders
12/07/24 18:00
Electrocardiogram (*1) Urgent
Reason for Study: Palpitations
EKG- Treatment ONCE
12/07/24 19:18
0.9% Sodium Chloride 500 ml [Nss] 500 ml IV BOLUS
12/07/24 19:23
Complete Blood Count/With Diff Urgent
Comprehensive Metabolic Panel Urgent
D-Dimer Urgent
Free T4 Urgent
Magnesium Urgent
NT-proBNP Urgent
TSH Reflex To Free T4 Urgent
Troponin I Urgent
12/07/24 20:29
CR Chest - 2 Views Urgent
Comment:
Reason For Exam: sob
Abnormal Lab Results
12/07/24
19:23
RBC 3.58 L 10^6/uL
(4.20-5.40)
Hgb 10.9 L g/dL
(12.0-16.0)
Hct 35.4 L %
(37.0-47.0)
MCHC 30.8 L g/dL
(33.0-37.0)
Plt Count 127 L 10^3/uL
(130-400)
MPV 12.8 H fL
(7.4-10.4)
Abs Immat Gran (auto) 0.1 H 10^3/uL
(0-0.05)
Absolute Neuts (auto) 6.9 H 10^3/uL
(1.4-6.5)
Immature Gran % 0.7 H %
(0-0.5)
Neutrophils % 76.4 H %
(42.2-75.2)
Lymphocytes % 14.0 L %
(20.5-51.1)
D-Dimer 0.62 H ug/mlFEU
(0.00-0.50)
BUN 20 H mg/dl
(7-17)
Glucose 143 H mg/dl
(70-99)
Total Protein 6.2 L g/dl
(6.3-8.2)
TSH (Reflex) 4.91 H uIU/ml
(0.47-4.68)
12/07/24 19:23
12/07/24 19:23
Vital Signs
Initial and Last Documented VS:
Initial Vital Signs
Temp Pulse Resp BP Pulse Ox
37.1 C 69 18 173/67 97
12/07/24 17:57 12/07/24 17:57 12/07/24 17:57 12/07/24 17:57 12/07/24 17:57
Last Documented Vital Signs
Temp Pulse Resp BP Pulse Ox
36.6 C 61 17 140/59 98
12/07/24 21:53 12/07/24 21:53 12/07/24 21:53 12/07/24 21:53 12/07/24 21:53
MDM/Problems Addressed
Differential Diagnosis Includes:
see MDM
MDM/Problems Addressed:
Note:
CHIEF COMPLAINT(S)
Shortness of breath and palpitations after walking up stairs and during dinner.
HISTORY OF PRESENT ILLNESS
The patient is a 79-year-old female who presented with shortness of breath and palpitations. The symptoms started while she was walking up stairs to dinner and intensified by the time she reached the top. Upon sitting down, she experienced
difficulty catching her breath but felt improved enough to start eating. However, after taking one bite of her meal, she went into atrial fibrillation (A-fib), which she hasnt experienced since her ablation performed in May or June. The patient
states that she attempted to control her symptoms through breathing exercises, as she has been able to do during previous episodes, but was unsuccessful due to the severity of the symptoms on this occasion.
The patient felt out of breath and was uncertain about her heart rate during the event. She notes that her head still feels 'funky,' describing it as not right or possibly a headache, which she attributes to the earlier episode. She believes the
event lasted until she was in the ambulance, where supplemental oxygen significantly improved her condition.
The patient mentions a history of chest pain associated with a shoulder complaint, which has persisted for months and has occasionally woken her from sleep. The pain is described as not particularly associated with deep breathing, but sometimes
occurs when walking and is accompanied by shoulder pain.
The patient reported a past atrial fibrillation episode similar to the current one, which necessitated a cardioversion. Since then, she has had the Watchman device implanted, negating the need for anticoagulation with Eliquis. 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
PAST MEDICAL AND SURGICAL HISTORY
The patient had an ablation procedure and a Watchman device implantation, both related to her history of atrial fibrillation.
ALLERGIES
The patient is allergic to Lisinopril, Betadine, iodine contrast, and Bactrim.
MEDICATIONS
She uses a water pill as needed, specifically hydrochlorothiazide.
REVIEW OF SYSTEMS
- Cardiovascular: Reports palpitations and atrial fibrillation episodes.
- Respiratory: Reports shortness of breath.
- Neurological: Describes head feeling 'funky' after the episode, possibly indicating headache.
- Musculoskeletal: Describes ongoing shoulder pain.
PHYSICAL EXAM
GENERAL: Alert , in no apparent distress
EYE: pupils equal and reactive
NECK: Supple
ENT: o/p clr, mmm.
CARDIAC: Regular rate and rhythm .
LUNGS: Clear breath sounds bilaterally, no acute respiratory distress, no wheezes/rales/rhonchi
ABDOMEN: Soft, without focal tenderness, no r/g, no cvat, normal bowel sounds
NEUROLOGICAL: Alert and oriented, no focal neuro deficits
SKIN: Warm and dry, skin intact.
MUSCULOSKELETAL: No edema, well perfused. neg juan's sign
PSYCH: Normal and appropriate interaction.
- Nursing notes reviewed and vital signs reviewed.
PLAN
Plan includes checking electrolytes and administering intravenous fluids. A D-dimer test is ordered due to recent travel and the presence of risk factors for pulmonary embolism. If the D-dimer is positive, a computed tomography scan with contrast
will be considered, despite the patients iodine allergy, which previously has been managed with premedication including steroids and Benadryl.
The patient is advised about the potential need for another ablation if episodes persist, acknowledging that post-ablation arrhythmias are not uncommon within the first six months. The healthcare provider will consider consulting with Dr. Magaña
if future cardioversion is contemplated due to recurrent arrhythmias.
DIFFERENTIAL DIAGNOSIS
The Differential Diagnosis includes, in no particular order and is not limited to:
1. Recurrence of atrial fibrillation
2. Pulmonary embolism
3. Cardiac ischemia
4. Heart failure
5. Anxiety-induced palpitations
6. Hyperthyroidism
7. Anemia
8. Electrolyte imbalance
9. Chronic obstructive pulmonary disease exacerbation
10. Medication-induced arrhythmia
79-year-old female with a history of A-fib status post ablation in April 2024, status post watchman in the past, off Eliquis presents for sudden onset of palpitations and shortness of breath while she was eating her dinner. She says it lasted about
30 minutes. She was pretty short of breath at the time but does not know what her heart rate was. For paramedics she was in A-fib but when she got here she converted to sinus. Patient feels asymptomatic now. She has not had any recent increase
in caffeine, fever or illness, but she has had travel to [place] recently. There is no leg swelling. She has no history of a DVT or PE.
On exam the patient's heart rates in the 70s, sinus, she occasionally has a PAC, patient's EKG does not show any ST elevations or depressions
Pulse ox normal. No signs of CHF.
Patient's labs reviewed, she does have an age-adjusted negative D-dimer, troponin less than 0.04, BNP that is still within normal limits given her age. Chest x-ray is clear. Electrolytes stable. There is been no recurrence of the A-fib while she
has been here. She has been up to the bathroom and is not short of breath. Discussed with ED attending. Okay with discharge home for outpatient follow-up, chest pain hotline
*Pulse Oximetry
SaO2: 99
Oxygen Mode of Delivery: Room air
Patient hypoxic: no (97)
*Critical Care Note
Total Time (30-74mins, 75-104mins- exclusive of procedures): Not Applicable
ED Attending Note
-
Portions of this chart may have been created with voice recognition software.� Occasional wrong word or��sound alike� substitutions may have occurred due to the inherent limitations of voice recognition software.
Discharge Plan
Departure
Patient Disposition: Home (Routine Discharge)
Date of Disposition: 12/07/24
Time of Disposition: 21:35
Patient with high blood pressure during this ER visit?: Yes
Condition: Fair
Covid-19: Not Applicable
Discharge Problem:
Paroxysmal A-fib
Instructions: Atrial Fibrillation (DC), Chest Pain DCA Follow Up
Prescriptions:
No Action
furosemide 40 mg Tablet
40 mg PO DAILYPRN PRN (Reason: edema)
metformin 500 mg Tablet
500 mg PO TID
acetaminophen 500 mg Tablet
1,000 mg PO BID PRN (Reason: pain)
levothyroxine [Synthroid] 75 mcg Tablet
75 mcg PO DAILY
famotidine [Pepcid] 20 mg Tablet
20 mg PO DAILY
lansoprazole 30 mg Capsule,Delayed Release(Dr/Ec)
30 mg PO BID
propranolol 120 mg Capsule,Extended Release 24hr
120 mg PO DAILY
rosuvastatin 10 mg Tablet
10 mg PO HS
Eliquis 5 mg Tablet
5 mg PO BID
magnesium oxide 400 mg magnesium Tablet
400 mg PO DAILY
Referrals:
Gricelda Noriega MD [Family Provider, Internal Medicine]
Activity Restrictions/Additional Instructions:
Your atrial fibrillation looks like it resolved before you got here. Your workup here was unremarkable. You should follow-up with Dr. Amos in the office in the next couple of days. Avoid caffeine, stay hydrated. Return for any recurrence,
passing out, chest pain etc.
Interventions
Interventions:
*Risk Screen - Suicide Last Done: 12/07/24 18:01
*General Assessment Last Done: 12/07/24 18:17
*Neglect/Abuse Screening Last Done: 12/07/24 18:01
*ED- Fall Risk Assessment Last Done: 12/07/24 18:16
*ED COVID-19 Vaccine History Last Done: 12/07/24 18:16
*ED Influenza Vaccine History Last Done: 12/07/24 18:16
*Nursing Disposition Last Done: 12/07/24 21:53
ED- Cardiac Assessment Last Done: 12/07/24 20:10
ED- Pulmonary Assessment Last Done: 12/07/24 20:10
Discharge Date and Time
Discharge Date/Time: 12/07/24 21:56
Print Language: [place]
[2024-12-07 21:53] VITALS: BP 140/59
== END 2024-12-07 21:56 | disposition home or self-care (01) ==
LOC: EMR 17:53
PROVIDERS: Physician Assistant; EMERGENCY PHYSICIAN Emergency Medicine; FAMILY PHYSICIAN Internal Medicine Geriatric Medicine
DX: I48.0 Paroxysmal atrial fibrillation (principal); I25.10 Atherosclerotic heart disease of native coronary artery without angina pectoris; I10 Essential (primary) hypertension; Z88.2 Allergy status to sulfonamides; Z88.8 Allergy status to other drugs, medicaments and biological substances; Z79.01 Long term (current) use of anticoagulants
CPT/HCPCS: 99284; 71046; 80053; 83735; 83880; 84439; 84443; 84484; 85025; 85379; 93005

== ENCOUNTER → 2025-01-29 13:36 | Outpatient (REF) | payer OTHER, SELFPAY | LOC: DHSLP 13:36 | PROVIDERS: ATTENDING PHYSICIAN Internal Medicine Cardiovascular Disease; FAMILY PHYSICIAN Internal Medicine Geriatric Medicine | DX: G47.19 Other hypersomnia (principal); R06.83 Snoring | CPT/HCPCS: 95800 ==